=== PATIENT | female | born 1955 | race Caucasian/White ===

== ENCOUNTER 2017-03-02 05:57 | Day surgery (SDC) | payer OTHER ==
[~2017-03-02] VITALS: Ht 147.3 cm; Wt 59.7 kg
[2017-03-02 06:53] VITALS: Ht 147.3 cm; Wt 59.7 kg
[2017-03-02] MEDS ORDERED: LEVOTHYROXINE DAILY (07:05)
[2017-03-02] MEDS ORDERED: ZANTAC DAILY (07:05)
[2017-03-02 07:22] VITALS: BP 149/72; PULSE 61; RESP 13
--- NOTE | 2017-03-02 08:25 | OPPN ---
Date/Time of Note Date/Time of Note DATE: 03/02/17 TIME: 08:24 Operative Report Preoperative Diagnosis Abdominal pain Screening colonoscopy Postoperative Diagnosis Gastritis with erosions Transverse colon polyp was removed Internal hemorrhoids Operation/Procedure Performed Esophagogastroduodenoscopy and biopsy Colonoscopy and biopsy Surgeon see signature line assistant paralegal None Anesthesia: moderate sedation Estimated blood loss: none Transfusion Required none Specimen Gastric mucosal biopsy Transverse colon polyp Grafts/Implants none Complications none RUDY THOMPSON MD Mar 02, 2017 08:25
[2017-03-02] MEDS ORDERED: MIDAZOLAM 1 MG/ML 2 ML INJ ONE ×3 (08:37)
[2017-03-02] MEDS ORDERED: FENTAnyl 50 MCG/ML VIAL ONE (08:37)
[2017-03-02 08:42] VITALS: BP 105/59; RESP 20
--- NOTE | 2017-03-02 13:36 | GILP ---
DATE OF PROCEDURE: NAME OF PROCEDURES: 1. Esophagogastroduodenoscopy and biopsy. 2. Colonoscopy and biopsy. SURGEON: Rudy Leger MD PREOPERATIVE DIAGNOSES: 1. Abdominal pain. 2. Screening colonoscopy. POSTOPERATIVE DIAGNOSES 1. Gastritis with erosions. 2. Gastric mucosal biopsies were taken for Helicobacter pylori test. 3. Colonoscopy all the way to the cecum. 4. Small transverse colon polyp was removed using biopsy forceps. 5. Internal hemorrhoids. INDICATION FOR THE PROCEDURE: Ms. Elzbieta Blevins is a 61-year-old female patient who had upper abd ominal pain not responding to therapy. The patient also needed screening colonoscopy. The procedures and possible complications are well explained to the patient, she understood and cons ented to the procedures. DESCRIPTION OF PROCEDURE: Under the influence of fentanyl and Versed, the gastroscope was carefully introduced into the esophagus and under direct vision it was advanced to the stomach and through th e pylorus into the duodenal bulb and descending duodenum. FINDINGS: ESOPHAGUS: The mucosa was normal. STOMACH: The patient had gastritis with erosions. Gastric mucosal biopsies were taken for H. pylor i test. DUODENUM: Normal. The colonoscope was carefully introduced in the rectum and under direct vision it was advanced all t he way to the cecum. FINDINGS: The patient had a small transverse colon polyp and it was removed using biopsy forceps. She was noted to have internal hemorrhoids. She tolerated the procedures very well and there was no complication from the procedures. At the en d of the procedures, she was awake with stable vital signs and she was discharged home to the care o f her family. IMPRESSION: Please see postoperative diagnosis. PLAN: 1. Omeprazole 40 mg p.o. q.a.m. 2. Await Helicobacter pylori test report. 3. Next screening colonoscopy in 10 years. Dictated By: RUDY BUTTS/ISABEL Conf#: [id number] DID#: [id number]
== END 2017-03-02 19:08 | disposition home or self-care (01) ==
LOC: GIL 05:57
PROVIDERS: ATTEND Internal Medicine Gastroenterology
DX: Z12.11 Encounter for screening for malignant neoplasm of colon (principal); D12.3 Benign neoplasm of transverse colon; B96.81 Helicobacter pylori [H. pylori] as the cause of diseases classified elsewhere; K29.70 Gastritis, unspecified, without bleeding; K64.8 Other hemorrhoids
CPT/HCPCS: 43239; 45380; 87081; 88305; J2250; J3010; Z7610